=== PATIENT | female | born 1970 | race Caucasian/White ===

== ENCOUNTER 2023-01-24 09:37 | Outpatient (CLI) | payer BC, SELFPAY ==
--- NOTE | 2023-01-24 10:00 | CRLHL7_ITS ---
For Patients: As a result of the Century Cures Act, medical imaging exams and procedure reports are released immediately into your electronic medical record. You may view this report before your referring provider. If you have questions, please contact your health care provider. Indication: LLQ PAIN Technique: CT Abdomen/Pelvis [id number]/[id number] Please note that all CT scans at this facility use dose modulation, iterative reconstruction, and/or weight-based dosing when appropriate to reduce radiation dose to as low as reasonably achievable. Comparison: None Findings: Lung bases are clear. Diffuse low attenuation of the hepatic parenchyma. The liver is enlarged measuring 21.4 cm. The spleen is enlarged measuring 15.1 cm. Adrenal glands normal. Normal kidneys. Pancreas normal. Normal gallbladder. No hiatal hernia. Uterus normal. Right ovarian cyst is present measuring 2.2 cm. Left ovary unremarkable. Normal bladder. No pelvic free fluid. No free air or abscess. No diverticulitis. No bowel obstruction. Normal appendix. No excess stool in the colon. No abdominal wall hernia defect. 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 Impression: Hepatosplenomegaly and hepatic steatosis. No ascites. No bowel obstruction or acute inflammatory change. 2.2 cm right ovarian cyst. Please note that all CT scans at this facility use dose modulation, iterative reconstruction, and/or weight-based dosing when appropriate to reduce radiation dose to as low as reasonably achievable. Dictated by Abran Palacios MD @ 01/24/2023 3:18:42 PM (Electronically Signed)
== END 2023-01-24 09:38 | disposition home or self-care (01) ==
LOC: CT 09:38
PROVIDERS: PCP Family Medicine; Visit Provider Family Medicine
DX: R10.32 Left lower quadrant pain (principal); K76.0 Fatty (change of) liver, not elsewhere classified; R16.2 Hepatomegaly with splenomegaly, not elsewhere classified; N83.201 Unspecified ovarian cyst, right side
CPT/HCPCS: 74177; Q9967